=== PATIENT | female | born 1995 | race Caucasian/White ===

== ENCOUNTER 2018-05-19 15:50 | Inpatient (IN) | payer OTHER ==
[~2018-05-19] VITALS: Ht 162.6 cm; Wt 116.1 kg
[2018-05-19 16:51] VITALS: BP 119/66
== END 2018-05-19 18:30 | disposition home or self-care (01) | DRG 566 ==
LOC: MLD 15:50
PROVIDERS: ADMIT Obstetrics & Gynecology; ATTEND Obstetrics & Gynecology
DX: O26.891 Other specified pregnancy related conditions, first trimester (principal); Z3A.14 14 weeks gestation of pregnancy
CPT/HCPCS: 59025; 76805; 81000; Q0092

== ENCOUNTER 2018-05-20 17:00 | Inpatient (IN) | payer OTHER ==
[~2018-05-20] VITALS: Ht 162.6 cm; Wt 116.1 kg
[2018-05-20] MEDS: LACTATED RINGERS 1,000 ML IV SCH (02:46)
[2018-05-20] MEDS ORDERED: METHYLERGONOVINE 0.2 MG/ML AMP IM PRN (17:30)
[2018-05-20] MEDS ORDERED: OXYTOCIN 10 UNITS/ML VIAL IM SCH (17:30)
[2018-05-20] MEDS ORDERED: NALBUPHINE 10 MG/ML AMP IVP PRN ×2 (17:30→20:35)
[2018-05-20] MEDS ORDERED: CARBOPROST 250 MCG/ML AMP IM PRN (17:30)
[2018-05-20] MEDS ORDERED: PROMETHAZINE 25 MG/ML VIAL IVP PRN (17:30)
[2018-05-20 18:12] LABS: APPEARANCE,URINE SL CLOUDY (CLEAR); BILIRUBIN,URINE NEGATIVE (NEGATIVE); BLOOD, URINE NEGATIVE (NEGATIVE); COLOR,URINE YELLOW (YELLOW); LEUKOCYTE ESTERASE ,URINE 2+ (NEGATIVE); NITRITE, URINE NEGATIVE (NEGATIVE); UGLUCOSE NEGATIVE (NEGATIVE)
[2018-05-20 18:12] LABS: BASOPHILS # (AUTO) 0.1 K/uL (0.00-0.22); BASOPHILS % (AUTO) 1.3 % (0.0-2.0); EOSINOPHILS # (AUTO) 0.1 K/uL (0-0.4); EOSINOPHILS % (AUTO) 1.5 % (0.0-4.0); HEMATOCRIT 39.6 % (36-48); HEMOGLOBIN 12.5 g/dL (12.0-16.0); LYMPHOCYTES # (AUTO) 1.7 K/uL (2.5-16.5); LYMPHOCYTES % (AUTO) 21.8 % (20.5-51.1); MEAN CORPUSCULAR HEMOGLOBIN 24 pg (27-31); MEAN CORPUSCULAR HGB CONC 32 g/dL (33-37); MEAN CORPUSCULAR VOLUME 76.8 fL (80-94); MONOCYTES # (AUTO) 0.5 K/uL (0.8-1.0); NEUTROPHILS # (AUTO) 5.5 K/uL (1.8-7.7); NEUTROPHILS % (AUTO) 69.4 % (42.2-75.2); PLATELET COUNT (AUTO) 244 K/uL (140-450); RED BLOOD CELL COUNT(AUTO) 5.15 MIL/uL (4.20-5.40); RED CELL DISTRIBUTION WIDTH 16.1 % (11.6-13.7); WHITE BLOOD COUNT (AUTO) 7.9 K/uL (4.8-10.8)
[2018-05-20 18:26] LABS: ALBUMIN 2.7 g/dL (3.4-5.0); ANION GAP 12.9 (8-16); CARBON DIOXIDE 20.7 mmol/L (21-32); CREATININE 0.4 mg/dL (0.6-1.3); POTASSIUM 3.6 mmol/L (3.5-5.1); TOTAL BILIRUBIN 0.1 mg/dL (0.0-1.0)
[2018-05-20] MEDS ORDERED: MISOPROSTOL 25 MCG TAB ONE (19:50)
[2018-05-20] MEDS: MISOPROSTOL 25 MCG TAB VG SCH (19:56)
[2018-05-20] MEDS ORDERED: OXYTOCIN 20 UNITS in LACTATED RINGERS 1,000 ML IV SCH (20:33)
[2018-05-20] MEDS ORDERED: MISOPROSTOL 25 MCG TAB VG ONE (20:35)
[2018-05-20 21:22] LABS: RBC,URINE 0-5 (RARE) /HPF (0-5)
[2018-05-21] MEDS ORDERED: OXYTOCIN 20 UNITS/LR PREMIX 1,000 ML IV ONE (04:00)
[2018-05-21] MEDS: LACTATED RINGERS 1,000 ML IV SCH (06:30)
--- NOTE | 2018-05-21 08:18 | NUR ---
PATIENT HAS BEEN SCREENED AND CATEGORIZED LOW NUTRITION RISK. PATIENT WILL BE SEEN WITHIN 7 DAYS OF ADMISSION. 05/27/18 ANGELA LE MBA, RD
[2018-05-21] MEDS ORDERED: ROPIVACAINE 0.2%/NS PREMIX 250 ML EPI ONE (17:24)
[2018-05-21] MEDS: MISOPROSTOL 25 MCG TAB VG SCH (20:25)
[2018-05-21] MEDS ORDERED: MISOPROSTOL 25 MCG TAB ONE (20:26)
[2018-05-22] MEDS ORDERED: ROPIVACAINE 0.2%/NS PREMIX 250 ML EPI ONE (06:35)
[2018-05-22] MEDS: LACTATED RINGERS 1,000 ML IV SCH (09:00)
[2018-05-23] MEDS ORDERED: CITRIC ACID/SODIUM CITRATE 30 ML UDC PO ONE (04:25)
[2018-05-23] MEDS ORDERED: ePHEDrine 50 MG/ML VIAL IV ONE (12:53)
[2018-05-23] MEDS ORDERED: fentaNYL 0.05 MG/ML VIAL ONE (13:02)
[2018-05-23] MEDS ORDERED: MORPHINE PRES FREE 2 MG/2 ML 2 mL UD SYRINGE ONE (13:02)
[2018-05-23] MEDS ORDERED: BUPIVACAINE/DEXT 0.75% SPINAL 2 ML AMP INJ ONE (13:02)
[2018-05-23] MEDS ORDERED: NALBUPHINE 10 MG/ML AMP IVP PRN (13:25)
[2018-05-23] MEDS ORDERED: KETOROLAC 60 MG/2 ML VIAL IM PRN (13:25)
[2018-05-23] MEDS ORDERED: diphenhydrAMINE 50 MG/ML VIAL IVP PRN (13:25)
[2018-05-23] MEDS ORDERED: NALOXONE 0.4 MG/ML VIAL IVP PRN ×3 (13:25)
[2018-05-23] MEDS ORDERED: ONDANSETRON 4 MG/2 ML VIAL IVP PRN ×2 (13:25)
[2018-05-23] MEDS ORDERED: OXYTOCIN 10 UNITS/ML VIAL ONE ×2 (14:13→15:44)
[2018-05-23] MEDS ORDERED: ONDANSETRON 4 MG/2 ML VIAL ONE (15:44)
[2018-05-23] MEDS ORDERED: OXYTOCIN 20 UNITS in LACTATED RINGERS 1,000 ML IV SCH ×2 (17:54→18:25)
[2018-05-23] MEDS ORDERED: MEASLES, MUMPS, AND RUBELLA 1 VIAL SQVAC PRN (17:55)
[2018-05-23] MEDS ORDERED: HYDROmorphone 1 MG/ML AMP IVP PRN (17:55)
[2018-05-23] MEDS: CEFAZOLIN SODIUM 2 GM/D5W PM 50 ML IV SCH (21:12)
[2018-05-24] MEDS: CEFAZOLIN SODIUM 2 GM/D5W PM 50 ML IV SCH (05:05)
[2018-05-24] MEDS: KETOROLAC 30 MG/ML VIAL IVP PRN ×2 (06:38→20:06)
[2018-05-24 08:53] LABS: BASOPHILS % (AUTO) 0.3 % (0.0-2.0); EOSINOPHILS # (AUTO) 0.2 K/uL (0-0.4); EOSINOPHILS % (AUTO) 2.1 % (0.0-4.0); HEMATOCRIT 33.3 % (36-48); HEMOGLOBIN 10.5 g/dL (12.0-16.0); LYMPHOCYTES # (AUTO) 1.2 K/uL (2.5-16.5); LYMPHOCYTES % (AUTO) 16.1 % (20.5-51.1); MEAN CORPUSCULAR HEMOGLOBIN 25 pg (27-31); MEAN CORPUSCULAR HGB CONC 32 g/dL (33-37); MEAN CORPUSCULAR VOLUME 77.7 fL (80-94); MONOCYTES # (AUTO) 0.5 K/uL (0.8-1.0); MONOCYTES % (AUTO) 7.2 % (1.7-9.3); NEUTROPHILS # (AUTO) 5.5 K/uL (1.8-7.7); NEUTROPHILS % (AUTO) 74.3 % (42.2-75.2); PLATELET COUNT (AUTO) 191 K/uL (140-450); RED BLOOD CELL COUNT(AUTO) 4.28 MIL/uL (4.20-5.40); RED CELL DISTRIBUTION WIDTH 16.3 % (11.6-13.7); WHITE BLOOD COUNT (AUTO) 7.4 K/uL (4.8-10.8)
[2018-05-24] MEDS ORDERED: ACETAMINOPHEN 325 MG TAB PO PRN (22:00)
[2018-05-25] MEDS ORDERED: oxyCODONE/APAP 5/325 MG 1 TAB TAB PO PRN (08:00)
[2018-05-25] MEDS ORDERED: DOCUSATE SODIUM 100 MG GELCAP PO SCH ×2 (08:00→09:00)
[2018-05-25] MEDS ORDERED: IBUPROFEN 600 MG TAB PO PRN (08:00)
[2018-05-25] MEDS ORDERED: SIMETHICONE 80 MG TAB.CHEW PO SCH ×2 (08:00→09:00)
[2018-05-25] MEDS ORDERED: SODIUM PHOSPHATE 118 ML ENEM RC PRN (08:00)
[2018-05-25] MEDS ORDERED: BISACODYL 5 MG TABEC PO SCH (09:00)
--- NOTE | 2018-05-27 12:28 | NUR ---
05/27/18 RD INITIAL ASSESSMENT COMPLETED PLEASE REFER TO NUTRITION ASSESSMENT UNDER CARE ACTIVITY FOR ESTIMATED NUTRITIONAL NEEDS. RD RECOMMENDATIONS: 1- RECOMMEND CONTINUE REGULAR DIET 2- RD F/U 5-7 DAYS; LOW RISK ANGELA LE MBA, RD
[2018-05-27] MEDS ORDERED: FERR325E14 PO (14:32)
[2018-05-27] MEDS ORDERED: IBUP-1842 PO (14:33)
== END 2018-05-27 15:45 | disposition home or self-care (01) | DRG 540 ==
LOC: MFCC 17:00
PROVIDERS: ADMIT Obstetrics & Gynecology; ATTEND Obstetrics & Gynecology
PROC: 10D00Z1 Extraction of Products of Conception, Low, Open Approach (ICD-10-PCS; principal; 2018-05-25)
PROC: 3E0234Z Introduction of Serum, Toxoid and Vaccine into Muscle, Percutaneous Approach (ICD-10-PCS; 2018-05-25)
DX: O62.0 Primary inadequate contractions (principal); Z68.41 Body mass index [BMI] 40.0-44.9, adult; O99.214 Obesity complicating childbirth; O69.81X0 Labor and delivery complicated by cord around neck, without compression, not applicable or unspecified; E66.01 Morbid (severe) obesity due to excess calories; Z37.0 Single live birth; Z23 Encounter for immunization
CPT/HCPCS: 36415; 59200; 76815; 80053; 81001; 85025; 86592; 86886; 86900; 86901; 87081; 87086; 90715; J0690; J1885; J2270; J2405; J2590; J2795; J3010; J3490; J7060; J7120; Q0092